=== PATIENT | female | born 1975 | race Caucasian/White ===

== ENCOUNTER 2016-09-10 15:42 | Emergency (ER) | payer MEDICAID ==
[2016-09-10] MEDS ORDERED: Ibuprofen 800 MG Tab PO ONE (16:41)
[2016-09-10] MEDS ORDERED: prednisoLONE Soln 15 MG/5 ML UD Cup PO ONE (16:50)
[2016-09-10 17:15] VITALS: BP 126/74
--- NOTE | 2016-09-10 17:22 | EDM.PDOC ---
ED HPI ENT - General Chief Complaint: ENT Problem Stated Complaint: SORE THROAT Time Seen by Provider: 09/10/16 17:17 Source of Information: Reports: Patient History Limitations: Reports: No limitations - History of Present Illness INITIAL COMMENTS - FREE TEXT/NARRATIVE: HISTORY AND PHYSICAL: 41-year-old female presenting with sore throat for 24 hours History of Present Illness: [No one in home has been ill] Review of Systems: As per history of present illness and below otherwise all systems reviewed and negative. Past medical history: As per history of present illness and as reviewed below otherwise noncontributory. Surgical history: As per history of present illness and as reviewed below otherwise noncontributory. Social history: No reported history of drug or alcohol abuse. Family history: As per history of present illness and as reviewed below otherwise noncontributory. Physical exam: Alert and oriented female who is quite grossly speaking answers questions appropriately HEENT: Atraumatic, normocehpalic, pupils reactive, negative for conjunctival pallor or scleral icterus, mucous membranes moist, throat clear, neck supple, nontender, trachea midline. Tonsils are 2+ erythematous hypertrophic white pustular exudate noted posterior tonsil. Cervical adenopathy is palpable slightly tender Lungs: Clear to auscultation, breath sounds equal bilaterally, chest non tender. Heart: S1S2, regular, negative for clicks, rubs, or JVD. Abdomen: Soft, nondistended, nontender. Negative for masses or hepatossplenmegaly. Negative for costovertebral tenderness. Extremities: Atraumatic, negative for cords or calf pain. Neurovascular unremarkable. Neuro: Awake, alert, oriented. Cranial nerves II through XII unremarkable. Cerebellum unremarkable. Motor and sensory unremarkable throughout. Exam nonfocal. Diagnostics: [ Strep screen positive] Therapeutics: [ Prednisolone syrup] Impression: [ Acute exudative tonsillitis Strep positive] Plan: [: Penicillin by mouth 500 milligrams three times a day for 10 days Medrol dose pack] follow up with your PCP in one week Definitive disposition and diagnosis as appropriate pending reevaluation and review of above. Timing/Duration: Reports: Day(s): Severity: moderate Location: Reports: throat Quality: Reports: Ache, Stabbing Improves with: Reports: None Worsens with: Reports: Eating, Movement Associated Symptoms: Reports: headaches - Related Data Allergies/ADRs: Allergies Allergy/AdvReac Type Severity Reaction Status Date / Time No Known Allergies Allergy Verified 09/10/16 16:26 Home Meds: Home Meds Atenolol 12.5 mg PO PCDINNER 09/10/16 [History] Atenolol 25 mg PO ACBREAKFAST 09/10/16 [History] Hydrochlorothiazide 12.5 mg PO DAILY 09/10/16 [History] Penicillin V Potassium 500 mg PO Q8HR #30 tablet 09/10/16 [Rx] Potassium Chloride 10 meq PO DAILY 09/10/16 [History] methylPREDNISolone [Medrol] 4 mg PO ASDIRECTED #1 dosepk 09/10/16 [Rx] 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 ED EXAM, ENT - Physical Exam Exam: See Below (see dictation) Course - Vital Signs Last Recorded V/S: Last Vital Signs Temp 37.9 C 09/10/16 17:13 Pulse 106 H 09/10/16 17:13 Resp 18 09/10/16 17:13 BP 126/74 09/10/16 17:13 Pulse Ox 99 09/10/16 17:13 - Orders/Labs/Meds Meds: Medications Discontinued Medications Generic Name Dose Route Start Last Admin Trade Name Glennq PRN Reason Stop Dose Admin Ibuprofen 800 mg 09/10/16 16:41 09/10/16 17:12 Motrin PO 09/10/16 16:42 800 mg ONETIME ONE Administration Prednisolone 15 mg 09/10/16 16:50 09/10/16 17:12 Orapred 15 Mg/5ml Soln PO 09/10/16 16:51 15 mg ONETIME ONE Administration Departure - Departure Time of Disposition: 17:22 Disposition: Home, Self-Care 01 Condition: good Clinical Impression: Tonsillitis Prescriptions: Penicillin V Potassium 500 mg PO Q8HR #30 tablet methylPREDNISolone [Medrol] 4 mg PO ASDIRECTED #1 dosepk Forms: ED Department Discharge Additional Instructions: The following information is given to patients seen in the emergency department who are being discharged to home. This information is to outline your options for follow-up care. We provide all patients seen in our emergency department with a follow-up referral. The need for follow-up, as well as the timing and circumstances, are variable depending upon the specifics of your emergency department visit. If you don't have a primary care physician on staff, we will provide you with a referral. We always advise you to contact your personal physician following an emergency department visit to inform them of the circumstance of the visit and for follow-up with them and/or the need for any referrals to a consulting specialist. The emergency department will also refer you to a specialist when appropriate. This referral assures that you have the opportunity for followup care with a specialist. All of these measure are taken in an effort to provide you with optimal care, which includes your followup. Under all circumstances we always encourage you to contact your private physician who remains a resource for coordinating your care. When calling for followup care, please make the office aware that this follow-up is from your recent emergency room visit. If for any reason you are refused follow-up, please contact the [facility] emergency department at and asked to speak to the emergency department charge nurse. Discussions have been electronically sent to [facility] Follow up with your primary care provider next week
== END 2016-09-10 17:29 | disposition home or self-care (01) ==
LOC: MW.ED 15:42
DX: J03.00 Acute streptococcal tonsillitis, unspecified (principal); Z79.899 Other long term (current) drug therapy; Z98.890 Other specified postprocedural states
CPT/HCPCS: 87804; 87880; 99283; A9270

== ENCOUNTER 2017-05-07 08:37 | Emergency (ER) | payer MEDICAID, OTHER ==
--- NOTE | 2017-05-07 08:53 | EDM.PDOC ---
ED HPI GENERAL MEDICAL PROBLEM - General Chief Complaint: Respiratory Problem Stated Complaint: COLD ON CHEST Time Seen by Provider: 05/07/17 08:50 - History of Present Illness INITIAL COMMENTS - FREE TEXT/NARRATIVE: HISTORY AND PHYSICAL: History of present illness: Patient is 41-year-old white female presents with a concern of cough and body aches over last several days she denies fever chills nausea vomiting or other concern at times she describes her lungs as "burning". She denies influenza immunization this year or other concern Review of systems: As per history of present illness and below otherwise all systems reviewed and negative. Past medical history: As per history of present illness and as reviewed below otherwise noncontributory. Surgical history: As per history of present illness and as reviewed below otherwise noncontributory. Social history: No reported history of drug or alcohol abuse. Family history: As per history of present illness and as reviewed below otherwise noncontributory. Physical exam: HEENT: Atraumatic, normocephalic, pupils reactive, negative for conjunctival pallor or scleral icterus, mucous membranes moist, throat clear, neck supple, nontender, trachea midline. Lungs: Clear to auscultation, breath sounds equal bilaterally, chest nontender. Heart: S1S2, regular, negative for clicks, rubs, or JVD. Abdomen: Soft, nondistended, nontender. Negative for masses or hepatosplenomegaly. Negative for costovertebral tenderness. Pelvis: Stable nontender. Genitourinary: Deferred. Rectal: Deferred. Extremities: Atraumatic, negative for cords or calf pain. Neurovascular unremarkable. Neuro: Awake, alert, oriented. Cranial nerves II through XII unremarkable. Cerebellum unremarkable. Motor and sensory unremarkable throughout. Exam nonfocal. Diagnostics: Influenza screen chest x-ray Therapeutics: None Impression: #1 tracheobronchitis Definitive disposition and diagnosis as appropriate pending reevaluation and review of above. 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 ED EXAM, GENERAL - Physical Exam Exam: See Below (See dictation) Course - Vital Signs Last Recorded V/S: Last Vital Signs Temp 37.6 C 05/07/17 08:50 Pulse 107 H 05/07/17 08:50 Resp 16 05/07/17 08:50 BP 136/77 05/07/17 08:50 Pulse Ox 94 L 05/07/17 08:50 - Orders/Labs/Meds Orders: Active Orders 24 hr Category Date Time Status Chest 2V [CR] Stat Exams 05/07/17 08:54 Taken Departure - Departure Time of Disposition: 09:44 Disposition: Home, Self-Care 01 Condition: Good Clinical Impression: Tracheobronchitis - Discharge Information Referrals: PCP,None [Primary Care Provider] - Forms: ED Department Discharge Additional Instructions: The following information is given to patients seen in the emergency department who are being discharged to home. This information is to outline your options for follow-up care. We provide all patients seen in our emergency department with a follow-up referral. The need for follow-up, as well as the timing and circumstances, are variable depending upon the specifics of your emergency department visit. If you don't have a primary care physician on staff, we will provide you with a referral. We always advise you to contact your personal physician following an emergency department visit to inform them of the circumstance of the visit and for follow-up with them and/or the need for any referrals to a consulting specialist. The emergency department will also refer you to a specialist when appropriate. This referral assures that you have the opportunity for followup care with a specialist. All of these measure are taken in an effort to provide you with optimal care, which includes your followup. Under all circumstances we always encourage you to contact your private physician who remains a resource for coordinating your care. When calling for followup care, please make the office aware that this follow-up is from your recent emergency room visit. If for any reason you are refused follow-up, please contact the [facility] emergency department at and asked to speak to the emergency department charge nurse. Augmentin albuterol as prescribed follow-up primary medical doctor 1 today's return as needed as discussed - My Orders Last 24 Hours: My Active Orders 05/07/17 08:54 Chest 2V [CR] Stat - Assessment/Plan Last 24 Hours: My Active Orders 05/07/17 08:54 Chest 2V [CR] Stat
[2017-05-07 10:23] VITALS: BP 131/67
--- NOTE | 2017-05-09 19:22 | CR ---
EXAM DATE: 05/07/17 PATIENT'S AGE: 41 Patient: TAM NEGRON Facility: [place], [place] Site . Site : 1975 Study: XRay Chest [id number]/31/2017 9:16:24 AM Ordering Physician: Jumana Guzman Final Report: Indication: Cough. Findings: Bony thorax and soft tissue structures are intact. Cardiac and mediastinal silhouettes are normal. The pulmonary vasculature is normal. Linear platelike atelectasis, scar or very small infiltrative process is noted in the right lower lung. The left lung is clear. There are no pleural effusions. Impression: Right lower lobe linear scar, atelectasis or a very small focal interstitial infiltrate. Dictated by Lizzy Kelley MD @ May 07 2017 9:18AM (Electronic Signature) Report Signed by Proxy. KRISTEN
== END 2017-05-07 10:22 | disposition home or self-care (01) ==
LOC: MW.ED 08:37
DX: J40 Bronchitis, not specified as acute or chronic (principal); Z79.899 Other long term (current) drug therapy
CPT/HCPCS: 71020; 71020-26; 87804; 96372; 99283; 99283-25

== ENCOUNTER 2017-05-21 07:42 | Emergency (ER) | payer MEDICAID ==
[2017-05-21 08:02] VITALS: BP 143/82
[2017-05-21] MEDS ORDERED: Pantoprazole 40 MG Vial IVPUSH ONE (08:21)
[2017-05-21] MEDS ORDERED: Sodium Chloride 0.9% 1,000 ML IV ONE (08:21)
[2017-05-21] MEDS ORDERED: Ondansetron 4 MG/2 ML SDV IVPUSH ONE (08:21)
--- NOTE | 2017-05-21 08:23 | EDM.PDOC ---
ED HPI GENERAL MEDICAL PROBLEM - General Chief Complaint: Gastrointestinal Problem Stated Complaint: ABDOMINAL PAIN Time Seen by Provider: 05/21/17 08:22 Source of Information: Reports: Patient - History of Present Illness INITIAL COMMENTS - FREE TEXT/NARRATIVE: HISTORY AND PHYSICAL: History of present illness: [Patient presents with diarrhea over the last week this began after completing a ten-day course of Augmentin for bronchitis his multiple loose watery stools throughout the day she reports possibly some blood in her stool or coffee- ground stool no fever nausea vomiting chills sweats ] Review of systems: As per history of present illness and below otherwise all systems reviewed and negative. Past medical history: As per history of present illness and as reviewed below otherwise noncontributory. Surgical history: As per history of present illness and as reviewed below otherwise noncontributory. Social history: No reported history of drug or alcohol abuse. Family history: As per history of present illness and as reviewed below otherwise noncontributory. Physical exam: HEENT: Atraumatic, normocephalic, pupils reactive, negative for conjunctival pallor or scleral icterus, mucous membranes moist, throat clear, neck supple, nontender, trachea midline. Lungs: Clear to auscultation, breath sounds equal bilaterally, chest nontender. Heart: S1S2, regular, negative for clicks, rubs, or JVD. Abdomen: Soft, nondistended, nontender. Negative for masses or hepatosplenomegaly. Negative for costovertebral tenderness. Pelvis: Stable nontender. Genitourinary: Deferred. Rectal: External nonthrombosed hemorrhoid otherwise no mass scar or lesion, internal exam no mass scarred lesion no obvious blood, guaiac-negative Extremities: Atraumatic, negative for cords or calf pain. Neurovascular unremarkable. Neuro: Awake, alert, oriented. Cranial nerves II through XII unremarkable. Cerebellum unremarkable. Motor and sensory unremarkable throughout. Exam nonfocal. Diagnostics: [CBC CMP lipase UA hCG Guaiac Influenza C. difficile and stool culture added ] Therapeutics: [1 L normal saline bolus Zofran 8 mg IV Proton X 80 mg IV ]Flagyl 500 mg by mouth 3 times a day 10 days #30 no refill Follow-up with primary care in 2 weeks sooner as needed Impression: C. difficile infection [Gastroenteritis Nonthrombosed hemorrhoid Guaiac-negative] Definitive disposition and diagnosis as appropriate pending reevaluation and review of above. abdominal cramping. 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 ED EXAM, GENERAL - Physical Exam Exam: See Below Course - Vital Signs Last Recorded V/S: Last Vital Signs Temp 97.2 F 05/21/17 08:00 Pulse 84 05/21/17 08:00 Resp 18 05/21/17 08:00 BP 143/82 H 05/21/17 08:00 Pulse Ox 97 05/21/17 08:00 - Orders/Labs/Meds Orders: Active Orders 24 hr Category Date Time Status Fecal Occult Blood Collection [RC] ASDIRECTED Care 05/21/17 08:52 Active CULTURE STOOL + CAMPY+SHIGATOX [RM] Stat Lab 05/21/17 09:50 Results UA W/MICROSCOPIC [URIN] Stat Lab 05/21/17 08:52 Ordered Labs: Laboratory Tests 05/21/17 05/21/17 05/21/17 Range/Units 08:29 08:29 08:30 WBC 7.94 (4.0-11.0) K/uL RBC 4.49 (4.30-5.90) M/uL Hgb 12.2 (12.0-16.0) g/dL Hct 37.5 (36.0-46.0) % MCV 83.5 (80.0-98.0) fL MCH 27.2 (27.0-32.0) pg MCHC 32.5 (31.0-37.0) g/dL RDW Std Deviation 41.9 (28.0-62.0) fl RDW Coeff of Juan Antonio 14 (11.0-15.0) % Plt Count 273 (150-400) K/uL MPV 8.80 (7.40-12.00) fL Neut % (Auto) 72.3 (48.0-80.0) % Lymph % (Auto) 19.0 (16.0-40.0) % Valencia % (Auto) 6.7 (0.0-15.0) % Eos % (Auto) 1.5 (0.0-7.0) % Baso % (Auto) 0.5 (0.0-1.5) % Neut # (Auto) 5.7 (1.4-5.7) K/uL Lymph # (Auto) 1.5 (0.6-2.4) K/uL Valencia # (Auto) 0.5 (0.0-0.8) K/uL Eos # (Auto) 0.1 (0.0-0.7) K/uL Baso # (Auto) 0.0 (0.0-0.1) K/uL Nucleated RBC % 0.0 /100WBC Nucleated RBCs # 0 K/uL Sodium 139 (136-146) mmol/L Potassium 3.2 L (3.5-5.1) mmol/L Chloride 102 (98-110) mmol/L Carbon Dioxide 27 (21-31) mmol/L BUN 15 (6.0-23.0) mg/dL Creatinine 0.7 (0.6-1.5) mg/dL Est Cr Clr Drug Dosing 101.81 mL/min Estimated GFR (MDRD) > 60.0 ml/min Glucose 118 H (60-110) mg/dL Calcium 9.3 (8.8-10.8) mg/dL Total Bilirubin 0.4 (0.1-1.5) mg/dL AST 16 (5-40) IU/L ALT 18 (8-54) IU/L Alkaline Phosphatase 67 (40-150) Total Protein 7.3 (6.0-8.0) g/dL Albumin 4.0 (3.5-5.0) g/dL Globulin 3.3 (2.0-3.5) g/dL Albumin/Globulin Ratio 1.2 L (1.3-2.8) Lipase 15 (7-80) U/L Urine HCG, Qual NEGATIVE (NEGATIVE) Meds: Medications Discontinued Medications Generic Name Dose Route Start Last Admin Trade Name Freq PRN Reason Stop Dose Admin Sodium Chloride 1,000 mls @ 999 mls/hr 05/21/17 08:21 05/21/17 09:15 Normal Saline IV 05/21/17 09:21 999 mls/hr STAT ONE Administration Ondansetron HCl 8 mg 05/21/17 08:21 05/21/17 09:15 Zofran IVPUSH 05/21/17 08:22 8 mg ONETIME ONE Administration Pantoprazole Sodium 80 mg 05/21/17 08:21 05/21/17 09:16 Protonix Iv IVPUSH 05/21/17 08:22 80 mg .BOLUS ONE Administration Potassium Chloride 20 meq 05/21/17 09:03 05/21/17 09:23 Klor-Con M20 PO 05/21/17 09:04 20 meq ONETIME ONE Administration Departure - Departure Time of Disposition: 11:13 Disposition: Home, Self-Care 01 Condition: Good Clinical Impression: C. difficile enteritis - Discharge Information Referrals: Wellington Quiles MD [Primary Care Provider] - Forms: ED Department Discharge Additional Instructions: The following information is given to patients seen in the emergency department who are being discharged to home. This information is to outline your options for follow-up care. We provide all patients seen in our emergency department with a follow-up referral. The need for follow-up, as well as the timing and circumstances, are variable depending upon the specifics of your emergency department visit. If you don't have a primary care physician on staff, we will provide you with a referral. We always advise you to contact your personal physician following an emergency department visit to inform them of the circumstance of the visit and for follow-up with them and/or the need for any referrals to a consulting specialist. The emergency department will also refer you to a specialist when appropriate. This referral assures that you have the opportunity for follow-up care with a specialist. All of these measure are taken in an effort to provide you with optimal care, which includes your follow-up. Under all circumstances we always encourage you to contact your private physician who remains a resource for coordinating your care. When calling for follow-up care, please make the office aware that this follow-up is from your recent emergency room visit. If for any reason you are refused follow-up, please contact the [facility] emergency department at and asked to speak to the emergency department charge nurse. - My Orders Last 24 Hours: My Active Orders 05/21/17 08:52 Fecal Occult Blood Collection [RC] ASDIRECTED UA W/MICROSCOPIC [URIN] Stat 05/21/17 09:50 CULTURE STOOL + CAMPY+SHIGATOX [RM] Stat - Assessment/Plan Last 24 Hours: My Active Orders 05/21/17 08:52 Fecal Occult Blood Collection [RC] ASDIRECTED UA W/MICROSCOPIC [URIN] Stat 05/21/17 09:50 CULTURE STOOL + CAMPY+SHIGATOX [RM] Stat
[2017-05-21 09:02] LABS: CHLORIDE,CL 102 mmol/L (98-110); SODIUM,NA 139 mmol/L (136-146)
[2017-05-21] MEDS ORDERED: Potassium Chloride 20 MEQ Tab.ER PO ONE (09:03)
== END 2017-05-21 11:23 | disposition home or self-care (01) ==
LOC: MW.ED 07:42
DX: A04.72 Enterocolitis due to Clostridium difficile, not specified as recurrent (principal); K64.9 Unspecified hemorrhoids; I10 Essential (primary) hypertension; Z79.899 Other long term (current) drug therapy
CPT/HCPCS: 36415; 80053; 81025; 83690; 85025; 87046; 87324; 87804; 96361; 96374; 96375; 99284; A9270; C9113; J2405; J7040; 87899; 99283

== ENCOUNTER 2017-09-11 17:28 | Emergency (ER) | payer SELFPAY ==
[2017-09-11] MEDS ORDERED: LORazepam 2 MG/ML SDV ONE (18:09)
[2017-09-12 07:55] VITALS: BP 134/83
--- NOTE | 2017-09-12 13:03 | CR ---
EXAM DATE: 09/11/17 PATIENT'S AGE: 42 Patient: TAM NEGRON Facility: [place], [place] Site . Site : 1975 Study: XRay Chest -09/11/2017 6:25:20 PM Ordering Physician: glenys Final Report: HISTORY: Palpitations. FINDINGS: AP portable chest radiograph is compared with 07 May 2017. EKG leads overlie the thorax. The cardiac silhouette is normal. Pulmonary vasculature is free of cephalization. No consolidation or pleural effusion is seen. Resolution of right basilar atelectasis. IMPRESSION: No acute cardiopulmonary disease. Dictated by Katlyn Ernandez MD @ 09/11/2017 6:52:12 PM Dictated by: Katlyn Ernandez MD @ 09/11/2017 18:52:21 (Electronic Signature) Report Signed by Proxy. [facility]
[2017-09-13 01:20] LABS: CHLORIDE,CL 103 mmol/L (98-107); SODIUM,NA 139 mmol/L (136-145)
== END 2017-09-11 19:42 | disposition home or self-care (01) ==
LOC: MW.ED 17:28
DX: M94.0 Chondrocostal junction syndrome [Tietze] (principal); F41.9 Anxiety disorder, unspecified; I10 Essential (primary) hypertension
CPT/HCPCS: 71045; 93005; 96361; 96374; 99285; J2060

== ENCOUNTER 2018-08-03 01:06 | Emergency (ER) | payer BC ==
[2018-08-03] MEDS ORDERED: Sodium Chloride 0.9% 1,000 ML IV ONE (01:14)
--- NOTE | 2018-08-03 01:16 | EDM.PDOC ---
ED HPI GENERAL MEDICAL PROBLEM - General Chief Complaint: Abdominal Pain Stated Complaint: ABDOMINAL PAIN, BLOODY DIARRHEA Time Seen by Provider: 08/03/18 01:15 Source of Information: Reports: Patient - History of Present Illness INITIAL COMMENTS - FREE TEXT/NARRATIVE: HISTORY AND PHYSICAL: History of present illness: [Patient presents with loose stools over the last several days, today she did have an episode of bloody diarrhea which prompted her visit to the ER She is not had any fever vomiting she does complain of low abdominal pain right greater than left rated 4 out of 10 no fever chills or sweats She is currently menstruating ] Review of systems: As per history of present illness and below otherwise all systems reviewed and negative. Past medical history: As per history of present illness and as reviewed below otherwise noncontributory. Surgical history: As per history of present illness and as reviewed below otherwise noncontributory. Social history: No reported history of drug or alcohol abuse. Family history: As per history of present illness and as reviewed below otherwise noncontributory. Physical exam: HEENT: Atraumatic, normocephalic, pupils reactive, negative for conjunctival pallor or scleral icterus, mucous membranes moist, throat clear, neck supple, nontender, trachea midline. Lungs: Clear to auscultation, breath sounds equal bilaterally, chest nontender. Heart: S1S2, regular, negative for clicks, rubs, or JVD. Abdomen: Soft, nondistended, nontender. Negative for masses or hepatosplenomegaly. Negative for costovertebral tenderness. Pelvis: Stable nontender. Genitourinary: Deferred. Rectal: Deferred. Extremities: Atraumatic, negative for cords or calf pain. Neurovascular unremarkable. Neuro: Awake, alert, oriented. Cranial nerves II through XII unremarkable. Cerebellum unremarkable. Motor and sensory unremarkable throughout. Exam nonfocal. Diagnostics: [CBC CMP UA hCG lipase CT abdomen pelvis with contrast ] Therapeutics: [Normal saline ] Profile 100 by mouth twice a day #20 no refill Impression: Gastroenteritis UTI Definitive disposition and diagnosis as appropriate pending reevaluation and review of above. 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/Metabolic History: Reports: Other (See Below) Other Endocrine/Metabolic History: paramenopause - Past Surgical History Cardiovascular Surgical History: Reports: None Female Surgical History: Reports: Section Social & Family History - Family History Family Medical History: Noncontributory - Caffeine Use Caffeine Use: Reports: None ED ROS GENERAL - Review of Systems Review Of Systems: See Below ED EXAM, GENERAL - Physical Exam Exam: See Below Course - Vital Signs Last Recorded V/S: Last Vital Signs Temp 97.6 F 08/03/18 03:03 Pulse 80 08/03/18 03:03 Resp 18 08/03/18 03:03 BP 113/71 08/03/18 03:03 Pulse Ox 98 08/03/18 03:03 - Orders/Labs/Meds Orders: Active Orders 24 hr Category Date Time Status CULTURE STOOL + CAMPY+SHIGATOX [RM] Stat Lab 08/03/18 02:00 Results CULTURE URINE [RM] Stat Lab 08/03/18 01:25 Received OVA & PARASITES BY IMMUNOASSAY [MREF] Stat Lab 08/03/18 02:00 Received Labs: Laboratory Tests 08/03/18 08/03/18 08/03/18 Range/Units 01:25 01:25 01:25 WBC 8.77 (4.0-11.0) K/uL RBC 4.73 (4.30-5.90) M/uL Hgb 13.1 (12.0-16.0) g/dL Hct 40.3 (36.0-46.0) % MCV 85.2 (80.0-98.0) fL MCH 27.7 (27.0-32.0) pg MCHC 32.5 (31.0-37.0) g/dL RDW Std Deviation 43.5 (28.0-62.0) fl RDW Coeff of Juan Antonio 14 (11.0-15.0) % Plt Count 275 (150-400) K/uL MPV 9.10 (7.40-12.00) fL Neut % (Auto) 65.1 (48.0-80.0) % Lymph % (Auto) 24.5 (16.0-40.0) % [place] % (Auto) 6.3 (0.0-15.0) % Eos % (Auto) 3.6 (0.0-7.0) % Baso % (Auto) 0.5 (0.0-1.5) % Neut # (Auto) 5.7 (1.4-5.7) K/uL Lymph # (Auto) 2.2 (0.6-2.4) K/uL [place] # (Auto) 0.6 (0.0-0.8) K/uL Eos # (Auto) 0.3 (0.0-0.7) K/uL Baso # (Auto) 0.0 (0.0-0.1) K/uL Sodium (136-145) mmol/L Potassium (3.5-5.1) mmol/L Chloride (98-107) mmol/L Carbon Dioxide (21.0-32.0) mmol/L BUN (7.0-18.0) mg/dL Creatinine (0.6-1.0) mg/dL Est Cr Clr Drug Dosing mL/min Estimated GFR (MDRD) ml/min Glucose (74-106) mg/dL Calcium (8.5-10.1) mg/dL Total Bilirubin (0.2-1.0) mg/dL AST (15-37) IU/L ALT (14-63) IU/L Alkaline Phosphatase (46-116) U/L Total Protein (6.4-8.2) g/dL Albumin (3.4-5.0) g/dL Globulin (2.6-4.0) g/dL Albumin/Globulin Ratio (0.9-1.6) Lipase (73-393) U/L Urine Color RED Urine Appearance CLOUDY Urine pH 5.5 (5.0-8.0) Ur Specific [place] >= 1.030 (1.001-1.035) Urine Protein 100 H (NEGATIVE) mg/dL Urine Glucose (UA) NEGATIVE (NEGATIVE) mg/dL Urine Ketones NEGATIVE (NEGATIVE) mg/dL Urine Occult Blood LARGE H (NEGATIVE) Urine Nitrite NEGATIVE (NEGATIVE) Urine Bilirubin NEGATIVE (NEGATIVE) Urine Urobilinogen 0.2 (<2.0) EU/dL Ur Leukocyte Esterase SMALL H (NEGATIVE) Urine RBC TOO NUMEROUS TO CT H (0-2/HPF) Urine WBC 0-2 (0-5/HPF) Ur Squamous Epith Cells FEW Urine Bacteria 1+ H (NEGATIVE) Urine Mucus LIGHT (NONE-MOD) Urine HCG, Qual NEGATIVE (NEGATIVE) 08/03/18 Range/Units 01:25 WBC (4.0-11.0) K/uL RBC (4.30-5.90) M/uL Hgb (12.0-16.0) g/dL Hct (36.0-46.0) % MCV (80.0-98.0) fL MCH (27.0-32.0) pg MCHC (31.0-37.0) g/dL RDW Std Deviation (28.0-62.0) fl RDW Coeff of Juan Antonio (11.0-15.0) % Plt Count (150-400) K/uL MPV (7.40-12.00) fL Neut % (Auto) (48.0-80.0) % Lymph % (Auto) (16.0-40.0) % [place] % (Auto) (0.0-15.0) % Eos % (Auto) (0.0-7.0) % Baso % (Auto) (0.0-1.5) % Neut # (Auto) (1.4-5.7) K/uL Lymph # (Auto) (0.6-2.4) K/uL [place] # (Auto) (0.0-0.8) K/uL Eos # (Auto) (0.0-0.7) K/uL Baso # (Auto) (0.0-0.1) K/uL Sodium 139 (136-145) mmol/L Potassium 3.8 (3.5-5.1) mmol/L Chloride 103 (98-107) mmol/L Carbon Dioxide 27.6 (21.0-32.0) mmol/L BUN 13 (7.0-18.0) mg/dL Creatinine 0.7 (0.6-1.0) mg/dL Est Cr Clr Drug Dosing 107.18 mL/min Estimated GFR (MDRD) > 60.0 ml/min Glucose 120 H (74-106) mg/dL Calcium 9.0 (8.5-10.1) mg/dL Total Bilirubin 0.2 (0.2-1.0) mg/dL AST 12 L (15-37) IU/L ALT 22 (14-63) IU/L Alkaline Phosphatase 70 (46-116) U/L Total Protein 7.7 (6.4-8.2) g/dL Albumin 3.7 (3.4-5.0) g/dL Globulin 4.0 (2.6-4.0) g/dL Albumin/Globulin Ratio 0.9 (0.9-1.6) Lipase 141 (73-393) U/L Urine Color Urine Appearance Urine pH (5.0-8.0) Ur Specific [place] (1.001-1.035) Urine Protein (NEGATIVE) mg/dL Urine Glucose (UA) (NEGATIVE) mg/dL Urine Ketones (NEGATIVE) mg/dL Urine Occult Blood (NEGATIVE) Urine Nitrite (NEGATIVE) Urine Bilirubin (NEGATIVE) Urine Urobilinogen (<2.0) EU/dL Ur Leukocyte Esterase (NEGATIVE) Urine RBC (0-2/HPF) Urine WBC (0-5/HPF) Ur Squamous Epith Cells Urine Bacteria (NEGATIVE) Urine Mucus (NONE-MOD) Urine HCG, Qual (NEGATIVE) Meds: Medications Discontinued Medications Generic Name Dose Route Start Last Admin Trade Name Freq PRN Reason Stop Dose Admin Sodium Chloride 1,000 mls @ 999 mls/hr 08/03/18 01:14 08/03/18 01:30 Normal Saline IV 08/03/18 02:14 999 mls/hr STAT ONE Administration Iopamidol 100 ml 08/03/18 02:14 08/03/18 02:14 Isovue Multipack-370 (76%) IVPUSH 08/03/18 02:15 100 ml ONETIME STA Administration Departure - Departure Time of Disposition: 03:14 Disposition: Home, Self-Care 01 Condition: Good Clinical Impression: Gastroenteritis, UTI (urinary tract infection) - Discharge Information Referrals: Wellington Quiles MD [Primary Care Provider] - Forms: ED Department Discharge Additional Instructions: Medication as prescribed Return if symptoms persist or worsen Follow-up with primary care in one week sooner as needed [facility] - Primary Care [address] [place] [id number] The following information is given to patients seen in the emergency department who are being discharged to home. This information is to outline your options for follow-up care. We provide all patients seen in our emergency department with a follow-up referral. The need for follow-up, as well as the timing and circumstances, are variable depending upon the specifics of your emergency department visit. If you don't have a primary care physician on staff, we will provide you with a referral. We always advise you to contact your personal physician following an emergency department visit to inform them of the circumstance of the visit and for follow-up with them and/or the need for any referrals to a consulting specialist. The emergency department will also refer you to a specialist when appropriate. This referral assures that you have the opportunity for follow-up care with a specialist. All of these measure are taken in an effort to provide you with optimal care, which includes your follow-up. Under all circumstances we always encourage you to contact your private physician who remains a resource for coordinating your care. When calling for follow-up care, please make the office aware that this follow-up is from your recent emergency room visit. If for any reason you are refused follow-up, please contact the [facility] emergency department at and asked to speak to the emergency department charge nurse. - My Orders Last 24 Hours: My Active Orders 08/03/18 01:25 CULTURE URINE [RM] Stat 08/03/18 02:00 CULTURE STOOL + CAMPY+SHIGATOX [RM] Stat OVA & PARASITES BY IMMUNOASSAY [MREF] Stat - Assessment/Plan Last 24 Hours: My Active Orders 08/03/18 01:25 CULTURE URINE [RM] Stat 08/03/18 02:00 CULTURE STOOL + CAMPY+SHIGATOX [RM] Stat OVA & PARASITES BY IMMUNOASSAY [MREF] Stat
[2018-08-03 01:53] LABS: CHLORIDE,CL 103 mmol/L (98-107); SODIUM,NA 139 mmol/L (136-145)
[2018-08-03] MEDS ORDERED: Iopamidol 755 MG/ML 500 ML Multipack Bottle IVPUSH STA (02:14)
--- NOTE | 2018-08-03 02:59 | CT ---
INDICATION: Abdominal pain and diarrhea. COMPARISON: None available TECHNIQUE: CT examination of the abdomen and pelvis was performed with the uneventful intravenous administration of 100 cc of Isovue 370 while 3 mm thick axial sections were obtained from the lung bases through the pubic symphysis. Oral contrast was not administered. Please note that all CT scans at this facility use dose modulation, iterative reconstruction, and/or weight-based dosing when appropriate to reduce radiation dose to as low as reasonably achievable. FINDINGS: In the abdomen, the liver is moderately enlarged, measuring 21.5 centimeters in length, nearly reaching the superior iliac crest. There is no sign of any mass or fatty infiltration. The spleen, pancreas, and adrenals are normal in appearance. The kidneys are normal in appearance. The gallbladder is normal in appearance. The abdominal aorta is normal in caliber with no sign of dilatation. There is no sign of retroperitoneal mass or adenopathy. The stomach, loops of small bowel, and colon in the abdomen are normal in appearance. In the pelvis, the appendix is normal in appearance with no sign of inflammatory process. The loops of small bowel and colon in the pelvis are normal in appearance. The uterus and adnexal regions are normal in appearance. The urinary bladder is normal in appearance. There is no sign of pelvic or inguinal mass or adenopathy. The lung bases are clear. There is mild scoliosis of the thoracolumbar spine convex towards the right. IMPRESSION: CT of the abdomen shows moderate hepatomegaly of uncertain etiology. No sign of any hepatic mass or fatty infiltration. No sign of any other abnormality in the abdomen to explain the patient`s abdominal pain. Normal CT of the pelvis with contrast. No sign of any abnormality of the colon or rectum to correlate with the history of diarrhea. Please note that all CT scans at this facility use dose modulation, iterative reconstruction, and/or weight-based dosing when appropriate to reduce radiation dose to as low as reasonably achievable. Dictated by Russell Spring MD @ Aug 03 2018 2:54AM Signed by Dr. Russell Spring @ Aug 03 2018 2:58AM
[2018-08-03 03:04] VITALS: BP 113/71
== END 2018-08-03 03:20 | disposition home or self-care (01) ==
LOC: MW.ED 01:06
DX: K52.9 Noninfective gastroenteritis and colitis, unspecified (principal); N39.0 Urinary tract infection, site not specified; I10 Essential (primary) hypertension; Z79.899 Other long term (current) drug therapy
CPT/HCPCS: 36415; 74177; 80053; 81001; 81025; 82272; 83690; 85025; 87046; 87086; 87324; 87328; 87329; 87899; 96360; 99284; J7040; Q9967

== ENCOUNTER 2021-05-02 12:17 | Emergency (ER) | payer OTHER ==
[2021-05-02 13:46] VITALS: BP 141/74; PULSE 78
[2021-05-02 14:27] LABS: CORONAVIRUS COVID-19 NAA POSITIVE (NEGATIVE); INFLUENZA A NAA NEGATIVE (NEGATIVE); INFLUENZA B NAA NEGATIVE (NEGATIVE)
--- NOTE | 2021-05-02 14:58 | EDM.PDOC ---
ED HPI GENERAL MEDICAL PROBLEM - General Chief Complaint: General Stated Complaint: TESTED POSITIVE ON AT HOME COVID TEST Time Seen by Provider: 05/02/21 14:49 Source of Information: Reports: Patient History Limitations: Reports: No Limitations - History of Present Illness INITIAL COMMENTS - FREE TEXT/NARRATIVE: HISTORY AND PHYSICAL: History of present illness: Patient is a 45-year-old female presents emergency room today with concern of possible COVID-19 infection. Patient states that she is not vaccinated but was set up to get the vaccine in a week or 2. Patient states that she started having cold symptoms on Monday with cough, sore throat and loss of taste and smell today so came to the emergency room. She does desire monoclonal antibody. Patient denies fever, chills, chest pain, shortness of breath, or cough. Denies headache, neck stiff ness, change in vision, syncope, or near syncope. Denies nausea, vomiting, abdominal pain, diarrhea, constipation, or dysuria. Has not noted any blood in urine or stool. Patient has been eating and drinking appropriately. Review of systems: As per history of present illness and below otherwise all systems reviewed and negative. Past medical history: As per history of present illness and as reviewed below otherwise noncontributory. Surgical history: As per history of present illness and as reviewed below otherwise noncontributory. Social history: See social history for further information Family history: As per history of present illness and as reviewed below otherwise noncontributory. Physical exam: General: Patient is alert, oriented, and in no acute distress. Patient sitting comfortably on exam table. Vitals stable and reviewed by me. HEENT: Atraumatic, normocephalic, pupils equal and reactive bilaterally, negative for conjunctival pallor or scleral icterus, mucous membranes moist, throat clear, neck supple, nontender, trachea midline. No drooling or trismus noted. No meningeal signs. No hot potato voice noted. Lungs: Clear to auscultation, breath sounds equal bilaterally, chest nontender. Heart: S1S2, regular rate and rhythm without overt murmur Abdomen: Soft, nondistended, nontender. Negative for masses or hepatosplenomegaly. Negative for costovertebral tenderness. Pelvis: Stable nontender. Genitourinary: Deferred. Rectal: Deferred. Skin: Intact, warm, dry. No lesions or rashes noted. Extremities: Atraumatic, negative for cords or calf pain. Neurovascular unremarkable. Neuro: Awake, alert, oriented. Cranial nerves II through XII unremarkable. Cerebellum unremarkable. Motor and sensory unremarkable throughout. Exam nonfocal. Medical Decision Making: Strict return precautions thoroughly discussed with patient. Discussed importance for follow-up with a primary care provider. Voices understanding and is agreeable to plan of care. Denies any further questions or concerns at this time. Diagnostics: COVID/Flu Therapeutics: None Prescription: Outpatient monoclonal ab infusion Impression: COVID 19 viral infection Plan: 1. Your COVID-19 screening is positive. That means you do have the coronavirus and are considered contagious. Your vital signs and oxygen saturation are well enough that you were able to monitor your symptoms at home. Continue to monitor for trouble breathing, new confusion or inability to arouse, bluish lips or face or any of the other symptoms we discussed -if this occurs please return to the emergency room.Continue to monitor your health at home for worsening symptoms so that you can be taken care of and treated quickly if needed. 2. Please self quarantine until 10 days have passed since your symptoms began AND you are fever free (<100.4 degrees fahrenheit) for 24 hours without the use of fever-reducing medications AND symptoms are improving. You should restrict activities outside of your home, except for getting medical care. Do not go to work, school, or public areas. Avoid using public transportation, ride-sharing, or taxis. Inform any persons that you have been in contact with since you started becoming symptomatic that you have tested positive; they should be made aware and take the appropriate steps as needed. 3. You may alternate Tylenol and ibuprofen as needed for pain and fever management. 4. The [facility] health department will be calling you and following up with you. The [place] COVID 19 Hotline phone number , They are open Monday - Monday 7am - 7pm. Follow up with your primary care provider for re-evaluation and re-testing after quarantine and discuss when you should be seen. 6. For more specific guidelines regarding isolation/quarantine please visit this website. https://www.health.[place].gov/sites/www/files/documents/Files/SKY/coronavirus/Factsh eet_for_People_With_COVID-19.pdf Definitive disposition and diagnosis as appropriate pending reevaluation and review of above. Head Pain Score (Numeric/FACES): 7 - Related Data Allergies Allergy/AdvReac Type Severity Reaction Status Date / Time No Known Allergies Allergy Verified 05/02/21 13:31 Home Meds: Home Meds Potassium Chloride 10 meq PO DAILY 09/10/16 [History] atenoloL [Atenolol] 12.5 mg PO BID 09/10/16 [History] hydroCHLOROthiazide [Hydrochlorothiazide] 12.5 mg PO DAILY 09/10/16 [History] Lansoprazole [Prevacid] 1 tab PO ASDIRECTED PRN 08/03/18 [History] Past Medical History - Past Health History Medical/Surgical History: Denies Medical/Surgical History Cardiovascular History: Reports: Hypertension Gastrointestinal History: Reports: GERD Genitourinary History: Reports: None 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 ED EXAM, GENERAL - Physical Exam Exam: See Below (see dictation) Course - Vital Signs Last Recorded V/S: Last Vital Signs Temp 96.8 F L 05/02/21 13:31 Pulse 78 05/02/21 13:31 Resp 16 05/02/21 13:31 BP 141/74 H 05/02/21 13:31 Pulse Ox 96 05/02/21 13:31 - Orders/Labs/Meds Labs: Laboratory Tests 05/02/21 Range/Units 13:42 Influenza Type A RNA NEGATIVE (NEGATIVE) Influenza Type B RNA NEGATIVE (NEGATIVE) SARS-CoV-2 RNA (CHANO) POSITIVE H (NEGATIVE) Departure - Departure Time of Disposition: 14:57 Disposition: Home, Self-Care 01 Clinical Impression: COVID-19 virus infection - Discharge Information Instructions: 10 Things You Can Do to Manage Your COVID-19 Symptoms at Home - [facility] (11/20/2020) Referrals: PCP,None [Primary Care Provider] - Forms: ED Department Discharge Additional Instructions: The following information is given to patients seen in the emergency department who are being discharged to home. This information is to outline your options for follow-up care. We provide all patients seen in our emergency department with a follow-up referral. The need for follow-up, as well as the timing and circumstances, are variable depending upon the specifics of your emergency department visit. If you don't have a primary care physician on staff, we will provide you with a referral. We always advise you to contact your personal physician following an emergency department visit to inform them of the circumstance of the visit and for follow-up with them and/or the need for any referrals to a consulting specialist. The emergency department will also refer you to a specialist when appropriate. This referral assures that you have the opportunity for follow-up care with a specialist. All of these measure are taken in an effort to provide you with optimal care, which includes your follow-up. Under all circumstances we always encourage you to contact your private physician who remains a resource for coordinating your care. When calling for follow-up care, please make the office aware that this follow-up is from your recent emergency room visit. If for any reason you are refused follow-up, please contact the [facility] Emergency Department at and asked to speak to the emergency department charge nurse. [facility] [address] [place] [address] [place] [address] 1. Your COVID-19 screening is positive. That means you do have the coronavirus and are considered contagious. Your vital signs and oxygen saturation are well enough that you were able to monitor your symptoms at home. Continue to monitor for trouble breathing, new confusion or inability to arouse, bluish lips or face or any of the other symptoms we discussed -if this occurs please return to the emergency room.Continue to monitor your health at home for worsening symptoms so that you can be taken care of and treated quickly if needed. 2. Please self quarantine until 10 days have passed since your symptoms began AND you are fever free (<100.4 degrees fahrenheit) for 24 hours without the use of fever-reducing medications AND symptoms are improving. You should restrict activities outside of your home, except for getting medical care. Do not go to work, school, or public areas. Avoid using public transportation, ride-sharing, or taxis. Inform any persons that you have been in contact with since you started becoming symptomatic that you have tested positive; they should be made aware and take the appropriate steps as needed. 3. You may alternate Tylenol and ibuprofen as needed for pain and fever management. 4. The [facility] department will be calling you and following up with you. The [place] COVID 19 Hotline phone number , They are open Monday - Monday 7am - 7pm. Follow up with your primary care provider for re-evaluation and re-testing after quarantine and discuss when you should be seen. 6. For more specific guidelines regarding isolation/quarantine please visit this website. https://www.health.[place].gov/sites/www/files/documents/Files/SKY/coronavirus/Factsh eet_for_People_With_COVID-19.pdf Sepsis Event Note (ED) - Evaluation Sepsis Screening Result: No Definite Risk - Focused Exam Vital Signs: Vital Signs Temp Pulse Resp BP Pulse Ox 05/02/21 13:31 96.8 F L 78 16 141/74 H 96
== END 2021-05-02 15:25 | disposition home or self-care (01) ==
LOC: MW.ED 12:17
DX: U07.1 COVID-19 (principal); I10 Essential (primary) hypertension; K21.9 Gastro-esophageal reflux disease without esophagitis; Z79.899 Other long term (current) drug therapy
CPT/HCPCS: 0240U; 99283

== ENCOUNTER 2021-10-06 08:58 | Day surgery (SDC) | payer OTHER ==
[~2021-10-06 08:58] MED LIST: Lactated Ringers 1,000 ML IV SCH; propofoL 100 ML ONE
[2021-10-06] MEDS ORDERED: Lidocaine 2% 5 ML SDV ONE (09:32)
[2021-10-06] MEDS ORDERED: Ondansetron 4 MG/2 ML SDV ONE (09:32)
[2021-10-06] MEDS ORDERED: fentaNYL 100 MCG/2 ML SDV ONE (09:52)
[2021-10-06 10:50] VITALS: BP 110/50; PULSE 80
== END 2021-10-06 11:20 | disposition home or self-care (01) ==
LOC: MW.SDS 08:58
PROVIDERS: ATTEND Surgery
DX: R10.32 Left lower quadrant pain (principal); R19.7 Diarrhea, unspecified; K21.9 Gastro-esophageal reflux disease without esophagitis; K31.89 Other diseases of stomach and duodenum; K22.89 Other specified disease of esophagus; K22.70 Barrett's esophagus without dysplasia; Z87.19 Personal history of other diseases of the digestive system; I10 Essential (primary) hypertension; E66.9 Obesity, unspecified; Z79.899 Other long term (current) drug therapy; Z98.890 Other specified postprocedural states; Z68.41 Body mass index [BMI] 40.0-44.9, adult
CPT/HCPCS: 81025; J2405; J2704; J3010; J7120